=== PATIENT | male | born 1975 | race Caucasian/White ===

== ENCOUNTER 2017-10-26 15:13 | Emergency (ER) | payer OTHER ==
[~2017-10-26] VITALS: Ht 188 cm; Wt 88.6 kg
[2017-10-26] MEDS ORDERED: ACETAMINOPHEN 325 MG TABLET ONE (15:51)
[2017-10-26 15:58] LABS: EOSINOPHILS % (AUTO) 0 % (1.0-6.0); HEMATOCRIT 44.1 % (41-53); HEMOGLOBIN 15.3 g/dL (13.5-17.5); LYMPHOCYTES # (AUTO) 0.3 K/uL (1.0-4.8); LYMPHOCYTES % (AUTO) 2.4 % (22.0-44.0); MEAN CORPUSCULAR HEMOGLOBIN 31.6 pg (26.0-34.0); MEAN CORPUSCULAR HGB CONC 34.6 G/dL (31.0-37.0); MEAN CORPUSCULAR VOLUME 91 fL (80-100); MONOCYTES # (AUTO) 0.6 K/uL (0.1-1.0); MONOCYTES % (AUTO) 4.5 % (2.0-9.0); NEUTROPHILS # (AUTO) 11.3 K/uL (1.8-7.7); PLATELET COUNT (AUTO) 162 K/uL (150-450); RED BLOOD CELL COUNT(AUTO) 4.82 MIL/uL (4.50-5.90); RED CELL DISTRIBUTION WIDTH 12.7 % (11.5-14.5)
[2017-10-26 16:02] LABS: NEUTROPHILS % (AUTO) 93.1 % (40.0-70.0)
[2017-10-26 16:10] LABS: ANION GAP 9 mmol/L (8-16); CALCIUM, TOTAL 7.9 mg/dL (8.8-10.5); CARBON DIOXIDE 28 mmol/L (22-29); CHLORIDE 100 mmol/L (98-107); CREATININE 1.14 mg/dL (0.60-1.30); GLOMERULAR FILTR. RATE CALC > 60 mL/min (>60); GLUCOSE,RANDOM 116 mg/dL (70-110); POTASSIUM 3.5 mmol/L (3.5-5.1); SODIUM SERUM 137 mmol/L (136-145); UREA NITROGEN, BLOOD 8 mg/dL (7-18)
[2017-10-26 16:18] LABS: LACTIC ACID 1.4 mmol/L (0.4-2.0)
[2017-10-26 16:24] LABS: ALANINE AMINOTRANSFERASE 38 U/L (12-78); ALBUMIN 3.2 g/dL (3.4-5.0); ALKALINE PHOSPHATASE 68 U/L (46-116); ASPARTATE AMINOTRANSFERASE 28 U/L (15-37); BILIRUBIN,TOTAL 0.4 mg/dL (0.1-1.0)
[2017-10-26] MEDS ORDERED: ONDANSETRON HCL 4 MG/2 ML VIAL IVP ONE (16:45)
[2017-10-26] MEDS ORDERED: SODIUM CHLORIDE 0.9% 1,000 ML IV ONE (17:00)
[2017-10-26 17:30] LABS: INFLUENZA TYPE A POSITIVE FOR TYPE A (NEGATIVE); INFLUENZA TYPE B NEGATIVE FOR TYPE B (NEGATIVE)
[2017-10-26 17:42] LABS: APPEARANCE,URINE CLEAR (CLEAR); BILIRUBIN,URINE NEGATIVE (NEGATIVE); GLUCOSE, URINE (UA) NEGATIVE (NEGATIVE); KETONES,URINE >=80 mg/dL (NEGATIVE); LEUKOCYTE ESTERASE ,URINE NEGATIVE (NEGATIVE); NITRATE,URINE NEGATIVE (NEGATIVE); OCCULT BLOOD,URINE SMALL (NEGATIVE); PROTEIN,URINE TRACE (NEGATIVE); UROBILINOGEN,URINE 0.2 mg/dL (<=1.0)
[2017-10-26] MEDS ORDERED: OSELTAMIVIR PHOSPHATE 75 MG CAPSULE PO ONE (17:45)
[2017-10-26] MEDS ORDERED: ACETAMINOPHEN/CODEINE 300-30 MG TABLET PO ONE (17:45)
[2017-10-26 17:55] LABS: BACTERIA,URINE None Seen /HPF (None Seen); WBC,URINE None Seen /HPF (0-5)
[2017-10-26] MEDS ORDERED: KETOROLAC TROMETHAMINE 30 MG/ML VIAL IVP ONE (19:00)
[2017-10-26 19:54] VITALS: BP 132/63
== END 2017-10-26 19:58 | disposition home or self-care (01) ==
LOC: EMS 15:15
DX: J11.1 Influenza due to unidentified influenza virus with other respiratory manifestations (principal); M54.9 Dorsalgia, unspecified; R04.2 Hemoptysis; R10.31 Right lower quadrant pain; R19.7 Diarrhea, unspecified; M79.1 Myalgia; Z88.0 Allergy status to penicillin
CPT/HCPCS: 36415; 71020; 80053; 81001; 83605; 85025; 87804; 94761; 96361; 96374; 96375; 99285; J1885; J2405; J7030; 71046

== ENCOUNTER 2023-05-20 12:59 | Emergency (ER) | payer MEDICAID, OTHER ==
[~2023-05-20] VITALS: Ht 188 cm; Wt 81.8 kg
[2023-05-20 13:06] VITALS: TEMP 98.2
[2023-05-20 15:26] VITALS: BP 101/64; PULSE 72; RESP 18
[2023-05-20] MEDS ORDERED: PERTUSS(ACELL),DIPH,TET VAC/PF 0.5 ML SYRINGE IM. ONE (16:00)
[2023-05-20] MEDS ORDERED: LIDOCAINE 1% 10 ML VIAL ID ONE (16:30)
[2023-05-20] MEDS ORDERED: IBUPROFEN 400 MG TABLET PO ONE (16:30)
[2023-05-20] MEDS ORDERED: DOXY-354 PO (19:00)
[2023-05-20] MEDS ORDERED: DOXYCYCLINE HYCLATE 100 MG TABLET PO ONE (19:00)
[2023-05-20] MEDS ORDERED: BACITRACIN ZINC/POLYMYXIN B 14.2 GM OINTMENT TP ONE (19:00)
== END 2023-05-20 20:12 | disposition home or self-care (01) ==
LOC: EMS 12:59
DX: S61.511A Laceration without foreign body of right wrist, initial encounter (principal); Z88.0 Allergy status to penicillin; W26.8XXA Contact with other sharp object(s), not elsewhere classified, initial encounter; Y93.89 Activity, other specified; Y92.89 Other specified places as the place of occurrence of the external cause; Y99.8 Other external cause status
CPT/HCPCS: 99283; 73110; 90715; 90471; 12002; J3490

== ENCOUNTER 2023-05-25 16:20 | Emergency (ER) | payer MEDICAID ==
[~2023-05-25] VITALS: Ht 188 cm; Wt 81.0 kg
[~2023-05-25 16:20] MED LIST: DOXY-354 PO
[2023-05-25 16:43] VITALS: BP 123/72; PULSE 83; RESP 16; TEMP 98.3
== END 2023-05-25 18:07 | disposition home or self-care (01) ==
LOC: EMS 16:22
DX: T14.90XD Injury, unspecified, subsequent encounter (principal); Z88.0 Allergy status to penicillin; X58.XXXD Exposure to other specified factors, subsequent encounter
CPT/HCPCS: 99281; Z7502

== ENCOUNTER 2025-10-20 15:08 | Emergency (ER) | payer MEDICAID ==
[~2025-10-20] VITALS: Ht 188 cm; Wt 85.5 kg
[2025-10-20 15:13] VITALS: BP 108/77; PULSE 72; RESP 18; TEMP 97.6; O2SAT 98
[2025-10-20] MEDS: KETOROLAC TROMETHAMINE 30 MG/ML VIAL IM ONE (16:19)
[2025-10-20] MEDS: ACETAMINOPHEN 500 MG TABLET PO ONE (16:19)
[2025-10-20] MEDS ORDERED: DOXY-354 PO (17:40)
== END 2025-10-20 18:20 | disposition home or self-care (01) ==
LOC: EMS 15:08
DX: S80.852A Superficial foreign body, left lower leg, initial encounter (principal); Z88.0 Allergy status to penicillin; X58.XXXA Exposure to other specified factors, initial encounter; Y93.89 Activity, other specified; Y92.89 Other specified places as the place of occurrence of the external cause; Y99.8 Other external cause status
CPT/HCPCS: 99283; 73590; 96372; J1885